=== PATIENT | male | born 1995 | race Caucasian/White ===

== ENCOUNTER 2016-10-25 06:32 | Day surgery (SDC) | payer OTHER ==
[2016-10-25] VITALS (10 sets, daily range): BP systolic 119–134; BP diastolic 63–84; PULSE 64–80; RESP 17–18; Ht 165.1 cm; Wt 56.0 kg
[~2016-10-25] VITALS: Ht 165.1 cm; Wt 56.0 kg
[2016-10-25 07:08] LABS: BASOPHILS % 0.7 % (0.0-2.0); EOSINOPHILS # 0.1 10^3/ul (0.0-0.5); EOSINOPHILS % 1.4 % (0.0-7.0); HEMATOCRIT 44.2 % (42.0-52.0); HEMOGLOBIN 15.6 g/dl (14.0-18.0); LYMPHOCYTES # 2.2 10^3/ul (0.8-2.9); LYMPHOCYTES % 51.6 % (18.0-55.0); MEAN CORPUSCULAR HEMOGLOBIN 29.7 pg (29.0-33.0); MEAN CORPUSCULAR HGB CONC 35.3 g/dl (32.0-37.0); MEAN PLATELET VOLUME 10.6 fl (7.4-10.4); MONOCYTE # 0.3 10^3/ul (0.3-0.9); MONOCYTES % 5.9 % (0.0-13.0); NEUTROPHIL # 1.7 10^3/ul (1.6-7.5); NEUTROPHILS % 40.4 % (30.0-74.0); PLATELET COUNT 153 10^3/UL (140-415); RED BLOOD COUNT 5.26 10^6/ul (4.70-6.10); RED CELL DISTRIBUTION WIDTH 11.4 % (11.5-14.5); WHITE BLOOD COUNT 4.3 10^3/ul (4.8-10.8)
[2016-10-25 07:20] LABS: HOLD TRANSMISSIONS 1
[2016-10-25] MEDS ORDERED: MIDAZOLAM 1 MG/ML 2 ML INJ ONE (07:28)
[2016-10-25] MEDS ORDERED: ONDANSETRON 4 MG INJ ONE (07:28)
[2016-10-25] MEDS ORDERED: FENTAnyl 50 MCG/ML VIAL ONE (07:28)
[2016-10-25] MEDS ORDERED: LIDOCAINE 2% (SDV) 5 ML INJ ONE (07:28)
[2016-10-25] MEDS ORDERED: NEOSTIGMINE 3 MG/3 ML SYRINGE ONE (07:28)
[2016-10-25] MEDS ORDERED: DEXAMETHASONE 4 MG/ML 1 ML INJ ONE (07:28)
[2016-10-25] MEDS ORDERED: ROCURONIUM 50 MG INJ ONE (07:28)
[2016-10-25] MEDS ORDERED: GLYCOPYRROLATE 0.4 MG INJ ONE (07:28)
[2016-10-25] MEDS ORDERED: PROPOFOL 20 ML ONE (07:28)
[2016-10-25] MEDS ORDERED: SUGAMMADEX SODIUM 200 MG/2 ML VIAL IV ONE (07:29)
[2016-10-25] MEDS ORDERED: LABETALOL HCL 20MG INJ IV PRN (07:30)
[2016-10-25] MEDS ORDERED: hydrALAzine 20 MG INJ IV PRN (07:30)
[2016-10-25] MEDS ORDERED: FENTAnyl 50 MCG/ML VIAL IV PRN (07:30)
[2016-10-25] MEDS ORDERED: ATROPINE 1 MG/10 ML SYRINGE IV PRN (07:30)
[2016-10-25] MEDS ORDERED: morphine (1 MG/ML) 10ML SYRINGE IV PRN ×3 (07:30)
[2016-10-25] MEDS ORDERED: HYDROmorphONE (0.2 MG/ML) 10ML SYG IV PRN ×3 (07:30)
[2016-10-25] MEDS ORDERED: OXYCODONE/ACETAMINOPHEN (5/325) TAB PO PRN ×2 (07:30)
[2016-10-25] MEDS ORDERED: MIDAZOLAM 1 MG/ML 2 ML INJ IV PRN (07:30)
[2016-10-25] MEDS ORDERED: EPHEDrine SULFATE 50 MG/5 ML SYG IV PRN (07:30)
[2016-10-25] MEDS ORDERED: DIPHENHYDRAMINE 50 MG INJ IV PRN (07:30)
[2016-10-25] MEDS ORDERED: ONDANSETRON 4 MG INJ IV PRN (07:30)
[2016-10-25] MEDS ORDERED: MEPERIDINE 25 MG INJ IV PRN (07:30)
[2016-10-25] MEDS ORDERED: BUPIVACAINE 0.25% (MPF) 30 ML INJ ONE (07:35)
[2016-10-25 07:46] LABS: INR 0.95; PROTIME 12.7 Sec (12.2-14.2)
[2016-10-25 07:47] LABS: PARTIAL THROMBOPLASTIN TIME 33.3 Sec (25.0-35.0)
[2016-10-25 07:48] LABS: ALBUMIN 4.5 g/dl (3.3-4.9); ALBUMIN/GLOBULIN RATIO 1.4; BILIRUBIN,INDIRECT 0.6 mg/dl (0-1.1); BILIRUBIN,TOTAL 0.6 mg/dl (0.2-1.3); TOTAL PROTEIN 7.7 g/dl (6.1-8.1)
[2016-10-25 07:58] LABS: CALCIUM 9.2 mg/dl (8.4-10.2); CREATININE 0.8 mg/dl (0.61-1.24); POTASSIUM 3.5 mmol/L (3.5-5.1)
[2016-10-25] MEDS ORDERED: BUPIVACAINE 0.25% (MPF) 30 ML INJ INJ ONE (09:17)
--- NOTE | 2016-10-25 09:37 | OPR ---
Date/Time of Note Date/Time of Note DATE: 10/25/16 TIME: 09:35 Operative Report Preoperative Diagnosis right testicle mass Postoperative Diagnosis same Operation/Procedure Performed right radical orchiectomy Surgeon: ARIANNA REDDY Estimated Blood Loss: none Transfusion Required: no Specimens right testicle and cord Grafts/Implants: none Complications: no ARIANNA REDDY Oct 25, 2016 09:37
--- NOTE | 2016-10-25 09:39 | PDOCDIS ---
Discharge Instructions CONDITION Patient Condition: Good HOME CARE INSTRUCTIONS: Diet Instructions: Regular ACTIVITY: Activity Restrictions: Slowly Increase Activity FOLLOW UP/APPOINTMENTS Follow-up Plan 2 weeks, call for time OTHER ORDERS: Other Orders: keep area dry for 3 days, then ok to remove dressing SCHOOL/WORK RELEASE May return to School/Work on: Nov 11, 2016 ARIANNA REDDY Oct 25, 2016 09:39
--- NOTE | 2016-10-25 10:00 | PREOPHP ---
DATE OF ADMISSION: 10/25/2016 HISTORY OF PRESENT ILLNESS: Elian Chau is a 21-year-old male, who has a 3-month history of a right hard testicular mass. Beta hCG 6.2, LDH 137. Patient had a scrotal ultrasound, which is consistent with a complex 2.76 cm cystic lesion within the right testicle of which malignancy cannot be excluded. This patient presents for a right radical orchiectomy. PAST MEDICAL HISTORY: None. PAST SURGICAL HISTORY: None. MEDICATIONS: None. ALLERGIES: NONE. PHYSICAL EXAMINATION: LUNGS: Good breath sounds bilaterally. HEART: Regular rate and rhythm. ABDOMEN: Soft, nondistended, nontender. No palpable masses. FLANK: No CVA tenderness. No masses. GENITALIA: Normal shaft of penis. Normal meatus. Normal scrotum. The superior half of the right testicle is noted for a hard mass, which has a consistency of testicular carcinoma. Normal left testicle normal. Normal left epididymis. IMPRESSION: Right testicular mass. PLAN: Right radical orchiectomy. How the procedure is performed, potential complications, side effects, logan and postoperative course, anesthetic risks have all been discussed with the patient, as well as his mother and father. The potential that this represents a benign etiology versus a carcinoma has additionally been reviewed and they understand the above. All questions have been answered. Dictated By: Joshua Joseph MD /[email or web address]/ely /Document#: [id number] CC: Joshua Joseph MD;*[facility]*
[2016-10-25] MEDS: FENTAnyl 50 MCG/ML VIAL IV PRN ×2 (10:04→10:13)
--- NOTE | 2016-10-25 10:46 | OPR ---
DATE OF OPERATION: 10/25/2016 BRIEF HISTORY: Elian is a 21-year-old male with a new onset of a right, hard testicular mass on physical examination. The exam is concerning for a testicular carcinoma. Scrotal ultrasound demonstrated a complex cystic mass of which a carcinoma cannot be excluded. The patient presents for right radical orchiectomy. How the procedure is performed, potential complications, the potential that the mass is benign versus cancerous was additionally reviewed. They understand the above and would like to proceed. PREOPERATIVE DIAGNOSIS: Right testicular mass. POSTOPERATIVE DIAGNOSIS: Right testicular mass. OPERATION PERFORMED: Right radical orchiectomy. SURGEON: Dr. Joseph. ANESTHESIA: General with local. COMPLICATIONS: None. ESTIMATED BLOOD LOSS: Negligible. SPECIMEN: Right testicle and cord structure. OPERATIVE PROCEDURE: The patient was brought into the operating room and placed on the operating room table in the supine position. He was prepped and draped in the usual fashion. After anesthesia was induced, a time out was undertaken. Appropriate pressure points were padded and preoperative antibiotic therapy. Physical examination under anesthesia demonstrated a normal left testicle. The right testicle was noted to have a hard, irregular mass with irregularities to the surface. A right inguinal incision was created parallel to the inguinal canal, which was taken through the skin and Luciano's fascia, thus exposing the aponeurosis of the external oblique, which was identified and opened through its . The ilioinguinal nerve was identified and from the surrounding structures. The ilioinguinal nerve was noted to be adherent onto the cord structure. The testicle was then attempted to be delivered from the scrotum into the inguinal canal. The testicle and cord structure were noted to be adherent to the surrounding structures. Very careful blunt and sharp dissection was taken so as to release the testicle from the scrotal wall and subsequently the cord structure was dissected from the inguinal canal. The testicle as well as the cord structure was noted to be adherent onto the surrounding structures but with careful dissection, the cord structure was dissected off of the surrounding structures up to the level of the internal canal. No violation of the skin/scrotal wall was appreciated. Pinpoint hemostasis was obtained. Additional dissection was required to free off the ilioinguinal nerve which was well preserved. The cord structure was then doubly ligated at the internal canal and a clamp was placed on the pathology side, thus allowing for removal of the testicle and cord structure up to the level of the internal ring with the utilization of the Metzenbaum scissors. The fascial layer was then reapproximated with a running stitch of 3-0 Vicryl suture. Luciano's fascia was reapproximated with a Vicryl suture stitch. The skin was reapproximated with surgical clips. We utilized a total of 10 cc of 0.25 percent Marcaine without epinephrine for ilioinguinal block and instillation into the wound. Telfa, a 4 x 4, and Op-Site dressing were then applied as well as a scrotal support. He was transferred to the recovery room in stable condition. Discharged to home on [place] 5/325, 1-2 tabs p.o. q.4 hours, dispensed number 40, no refills. He will follow up in the office in one week's time for removal of clips and discussion of pathology. Further intervention and evaluation pending clinical course and results of above. Dictated By: Joshua Joseph MD /[email or web address] /Document#: [id number]
== END 2016-10-25 11:15 | disposition home or self-care (01) ==
LOC: SDS 06:32
PROVIDERS: ATTEND Urology
DX: D29.21 Benign neoplasm of right testis (principal)
CPT/HCPCS: 54530; 80053; 85025; 85610; 85651; 85730; 88307; J1100; J2250; J2405; J3010; Z7512; Z7610; J2710